=== PATIENT | female | born 1995 | race Caucasian/White ===

== ENCOUNTER 2017-06-06 18:49 | Emergency (ER) | payer SELFPAY ==
[~2017-06-06] VITALS: Ht 175.3 cm; Wt 77.1 kg
[~2017-06-06 18:49] MED LIST: CRUTCH3 USE; Zofran Odt8 MG SL
== END 2017-06-06 19:06 | disposition home or self-care (01) ==
LOC: ER 18:49
DX: J06.9 Acute upper respiratory infection, unspecified (principal)
CPT/HCPCS: 99283; J1100

== ENCOUNTER 2019-01-26 11:54 | Emergency (ER) | payer SELFPAY ==
[~2019-01-26] VITALS: Ht 175.3 cm; Wt 111.1 kg
== END 2019-01-26 13:51 | disposition home or self-care (01) ==
LOC: ER 11:54
DX: I73.9 Peripheral vascular disease, unspecified (principal); L98.9 Disorder of the skin and subcutaneous tissue, unspecified
CPT/HCPCS: 99282

== ENCOUNTER → 2019-11-17 | Outpatient (CLI) | payer OTHER ==
[2019-11-18 07:53] LABS: Candida species (DNA Probe) Negative (NEGATIVE); G. vaginalis (DNA Probe) Negative (NEGATIVE); T. vaginalis (DNA Probe) Negative (NEGATIVE)
== END | disposition home or self-care (01) ==
LOC: LAB SHORT 13:09 → LAB 13:09
PROVIDERS: Obstetrics & Gynecology
DX: N76.0 Acute vaginitis (principal)
CPT/HCPCS: 87480; 87510; 87660

== ENCOUNTER 2020-01-17 18:30 | Emergency (ER) | payer OTHER ==
[~2020-01-17] VITALS: Ht 175.3 cm; Wt 117.9 kg
== END 2020-01-17 21:55 | disposition home or self-care (01) ==
LOC: ER 18:30
DX: N83.201 Unspecified ovarian cyst, right side (principal)
CPT/HCPCS: 76830; 76856; 99284-25

== ENCOUNTER 2020-02-16 10:41 | Day surgery (SDC) | payer OTHER ==
[~2020-02-16] VITALS: Ht 175.3 cm; Wt 119.3 kg
[~2020-02-16 10:41] MED LIST changes: +APRI 28 DAY TA1 EACH PO
[2020-02-16] MEDS ORDERED: IBU800 M1 PO (11:31)
--- NOTE | 2020-02-16 12:21 | NUR ---
02/16/20 1221 Janina Shelton ABDOMINAL AREA PREPPED BY ORS.KNM WITH DURAPREP. ABIMBOLA AREA AND THIGHS PREPPED BY ORS.JHP WITH BETADINE SOLUTION.
--- NOTE | 2020-02-16 14:18 | NUR ---
02/16/20 1418 Marilou Sanchez PT IS EATING CRACKERS. NAUSEA RESOLVED. PAIN LEVEL 6/10. WILL MEDICATE WITH ORAL PAIN MEDICATION ORDERED.
== END 2020-02-16 14:49 | disposition home or self-care (01) ==
LOC: ORSCSDS 10:41
PROVIDERS: Obstetrics & Gynecology
PROC: 0UB54ZZ Excision of Right Fallopian Tube, Percutaneous Endoscopic Approach (ICD-10-PCS; principal; 2020-02-16 12:00)
DX: N83.8 Other noninflammatory disorders of ovary, fallopian tube and broad ligament (principal); R10.2 Pelvic and perineal pain; E66.01 Morbid (severe) obesity due to excess calories; Z68.41 Body mass index [BMI] 40.0-44.9, adult
CPT/HCPCS: 88304; A9270; J0171; J1100; J1885; J2250; J2405; J2704; J2710; J2765; J3010; J7120

== ENCOUNTER → 2021-02-06 | Outpatient (CLI) | payer OTHER ==
[~2021-02-06] MED LIST changes: +IBU800 M1 PO
== END | disposition home or self-care (01) ==
LOC: LAB SHORT 11:30 → LAB 11:30
DX: O09.93 Supervision of high risk pregnancy, unspecified, third trimester (principal)
CPT/HCPCS: 87081; 87150

== ENCOUNTER 2021-03-02 13:02 | Inpatient (IN) | payer OTHER ==
[~2021-03-02] VITALS: Ht 175.3 cm; Wt 128.0 kg
[2021-03-02 14:26] LABS: BASOPHILS ABSOLUTE AUTO 0.03 K/mm3 (0.00-0.23); BASOPHILS PERCENT AUTO 0 % (0-2); EOSINOPHILS ABSOLUTE AUTO 0.04 K/mm3 (0.00-0.68); EOSINOPHILS PERCENT AUTO 1 % (0-6); Hematocrit 39.1 % (33.0-51.0); Hemoglobin 13.2 g/dL (11.5-16.0); IMMATURE GRAN PERCENT AUTO 1 % (0-1); LYMPHOCYTES ABSOLUTE AUTO 1.47 K/mm3 (0.84-5.20); LYMPHOCYTES PERCENT AUTO 17 % (21-46); MONOCYTES ABSOLUTE AUTO 0.71 K/mm3 (0.16-1.47); MONOCYTES PERCENT AUTO 8 % (4-13); Mean Corpuscular HGB 29.4 pg (26.0-34.0); Mean Corpuscular HGB Conc 33.8 g/dL (31.5-36.5); Mean Corpuscular Volume 87 fL (80-100); Mean Platelet Volume 9.7 fL (9.1-12.4); NEUTROPHILS PERCENT AUTO 74 % (41-73); Platelet Count 229 K/mm3 (150-400); RDW Coefficient Variation 13.6 % (11.7-14.2); RDW Standard Deviation 43.1 fL (35.1-46.3); Red Blood Cell Count 4.49 M/mm3 (3.80-5.20); White Blood Cell Count 8.85 K/mm3 (4.00-11.30)
[2021-03-02 15:13] LABS: Influenza A, PCR NEGATIVE (NEGATIVE); Influenza B, PCR NEGATIVE (NEGATIVE); Resp Syncytial Virus, PCR NEGATIVE (NEGATIVE); SARS-Cov-2 (COVID-19) PCR, MMC NEGATIVE (NEGATIVE)
[2021-03-04] MEDS ORDERED: PRENATAL TABLE1 EAC2 PO (08:30)
== END 2021-03-04 10:50 | disposition home or self-care (01) | DRG 807 ==
LOC: OBS 13:02 → BC 13:05 → OBS 13:11 → BC 13:15
PROVIDERS: ADMIT Family Medicine
PROC: 10E0XZZ Delivery of Products of Conception, External Approach (ICD-10-PCS; principal; 2021-03-02)
PROC: 0KQM0ZZ Repair Perineum Muscle, Open Approach (ICD-10-PCS; 2021-03-02)
PROC: 10907ZC Drainage of Amniotic Fluid, Therapeutic from Products of Conception, Via Natural or Artificial Opening (ICD-10-PCS; 2021-03-02)
DX: O99.214 Obesity complicating childbirth (principal); Z37.0 Single live birth; O48.0 Post-term pregnancy; Z20.822 Contact with and (suspected) exposure to COVID-19; O99.62 Diseases of the digestive system complicating childbirth; K21.9 Gastro-esophageal reflux disease without esophagitis; Z3A.40 40 weeks gestation of pregnancy; Z67.40 Type O blood, Rh positive; Z91.013 Allergy to seafood; Z79.899 Other long term (current) drug therapy; O70.1 Second degree perineal laceration during delivery; O43.123 Velamentous insertion of umbilical cord, third trimester
CPT/HCPCS: 0241U; 36415; 51701; 51702; 85025; 86850; 86900; 86901; A9270; J1885; J2210; J2405; J2590; J3010; J7120

== ENCOUNTER 2022-06-13 01:04 | Day surgery (SDC) | payer OTHER ==
[~2022-06-13 01:04] MED LIST changes: +BICARSIM FORTE125 MG PO; +FLUO10 PO; +METO5A PO; +ONDA4ODT MM; +PRENATAL TABLE1 EAC2 PO; +Prilosec Otc20 MG PO
[2022-06-13 07:36] VITALS: BP 124/73
== END 2022-06-13 10:10 | disposition home or self-care (01) ==
LOC: ATC 01:04
DX: O21.9 Vomiting of pregnancy, unspecified (principal)
CPT/HCPCS: 96361; 96374; C1751; J2405; J7120

== ENCOUNTER 2022-06-18 01:22 | Day surgery (SDC) | payer OTHER ==
[2022-06-18 09:16] VITALS: BP 116/73
== END 2022-06-18 09:53 | disposition home or self-care (01) ==
LOC: ATC 01:22
DX: O21.9 Vomiting of pregnancy, unspecified (principal); Z3A.32 32 weeks gestation of pregnancy
CPT/HCPCS: 96360; 96361; J2405; J7120

== ENCOUNTER → 2022-06-19 | Outpatient (CLI) | payer OTHER ==
[~2022-06-19] MED LIST changes: +Metrocream45 GM TOP
[2022-06-19 15:25] LABS: Candida species (DNA Probe) Negative (NEGATIVE); G. vaginalis (DNA Probe) Positive (NEGATIVE); T. vaginalis (DNA Probe) Negative (NEGATIVE)
== END | disposition home or self-care (01) ==
LOC: LAB SHORT 10:01 → LAB 10:01
PROVIDERS: Obstetrics & Gynecology
DX: N76.0 Acute vaginitis (principal)
CPT/HCPCS: 87480; 87510; 87660

== ENCOUNTER 2022-06-20 00:31 | Day surgery (SDC) | payer OTHER ==
[~2022-06-20 00:31] MED LIST changes: -Metrocream45 GM TOP
[2022-06-20 07:49] VITALS: BP 107/71
[2022-06-20] MEDS ORDERED: Metrocream45 GM TOP (08:39)
== END 2022-06-20 09:48 | disposition home or self-care (01) ==
LOC: ATC 00:31
DX: O21.9 Vomiting of pregnancy, unspecified (principal); Z3A.00 Weeks of gestation of pregnancy not specified
CPT/HCPCS: 96361; 96374; J2405; J7120

== ENCOUNTER 2022-06-23 00:28 | Day surgery (SDC) | payer OTHER ==
[~2022-06-23 00:28] MED LIST changes: +Metrocream45 GM TOP
[2022-06-23 07:40] VITALS: BP 119/76
== END 2022-06-23 10:10 | disposition home or self-care (01) ==
LOC: ATC 00:28
DX: O21.9 Vomiting of pregnancy, unspecified (principal); Z3A.00 Weeks of gestation of pregnancy not specified; Z79.899 Other long term (current) drug therapy
CPT/HCPCS: 96361; 96374; J2405; J7120

== ENCOUNTER 2022-06-25 02:28 | Day surgery (SDC) | payer OTHER ==
[2022-06-25 09:05] VITALS: BP 122/73
== END 2022-06-25 09:02 | disposition home or self-care (01) ==
LOC: ATC 02:28
DX: O21.9 Vomiting of pregnancy, unspecified (principal); Z3A.00 Weeks of gestation of pregnancy not specified
CPT/HCPCS: 96361; 96374; J2405; J7120

== ENCOUNTER 2022-06-30 00:46 | Day surgery (SDC) | payer OTHER ==
[2022-06-30 10:24] VITALS: BP 113/71
== END 2022-06-30 11:30 | disposition home or self-care (01) ==
LOC: ATC 00:46
DX: O21.9 Vomiting of pregnancy, unspecified (principal); Z3A.00 Weeks of gestation of pregnancy not specified
CPT/HCPCS: 96361; 96374; 96375; J2405; J7120

== ENCOUNTER → 2022-07-03 | Outpatient (CLI) | payer OTHER ==
[2022-07-03 12:32] LABS: Source, Urine Clean Catch
[2022-07-03 13:53] LABS: Appearance, Urine Clear (Clear); Bilirubin, Urine Neg (Neg); Blood, Urine 1+ (Neg); Color, Urine Yellow (P-Yellow); Glucose Qualitative, Urine Neg (Neg); Ketones, Urine 2+ (Neg); Leukocyte Esterase, Urine 1+ (Neg); Nitrite, Urine Neg (Neg); Protein, Urine 1+ (Neg); Urobilinogen, Urine NORM (Normal); pH, Urine 6.5 (5.0-8.0)
[2022-07-03 14:01] LABS: Bacteria Many /hpf; Squamous Epithelial Cells Mod /hpf (Few)
== END ==
LOC: LAB SHORT 11:20 → LAB 11:20
PROVIDERS: Family Medicine
DX: R82.79 Other abnormal findings on microbiological examination of urine (principal)
CPT/HCPCS: 81001; 87086

== ENCOUNTER 2022-07-04 01:46 | Day surgery (SDC) | payer OTHER ==
[2022-07-04 07:43] VITALS: BP 117/75
== END 2022-07-04 10:07 | disposition home or self-care (01) ==
LOC: ATC 01:46
DX: O21.9 Vomiting of pregnancy, unspecified (principal); Z3A.00 Weeks of gestation of pregnancy not specified; F41.8 Other specified anxiety disorders; Z79.899 Other long term (current) drug therapy
CPT/HCPCS: 96361; 96374; J2405; J7120

== ENCOUNTER 2022-07-07 02:34 | Day surgery (SDC) | payer OTHER ==
[2022-07-07 07:49] VITALS: BP 122/69
== END 2022-07-07 09:56 | disposition home or self-care (01) ==
LOC: ATC 02:34
DX: O21.9 Vomiting of pregnancy, unspecified (principal); Z3A.00 Weeks of gestation of pregnancy not specified; F41.8 Other specified anxiety disorders; Z79.899 Other long term (current) drug therapy
CPT/HCPCS: 96361; 96374; J2405; J7120

== ENCOUNTER → 2022-07-10 | Outpatient (CLI) | payer OTHER | END | disposition home or self-care (01) | LOC: LAB SHORT 12:00 → LAB 12:00 | DX: O09.893 Supervision of other high risk pregnancies, third trimester (principal) | CPT/HCPCS: 87081; 87150 ==

== ENCOUNTER 2022-07-11 00:33 | Day surgery (SDC) | payer OTHER ==
[2022-07-11 09:47] VITALS: BP 111/77
== END 2022-07-11 10:50 | disposition home or self-care (01) ==
LOC: ATC 00:33
DX: O21.9 Vomiting of pregnancy, unspecified (principal); Z3A.00 Weeks of gestation of pregnancy not specified; O99.210 Obesity complicating pregnancy, unspecified trimester; E66.9 Obesity, unspecified; O99.340 Other mental disorders complicating pregnancy, unspecified trimester; F41.8 Other specified anxiety disorders
CPT/HCPCS: 96361; 96374; J2405; J7120

== ENCOUNTER → 2022-07-17 | Outpatient (CLI) | payer OTHER ==
[~2022-07-17] MED LIST changes: +IBUP800 PO; +Prednisone10 MG PO
[2022-07-17 12:24] LABS: BASOPHILS ABSOLUTE AUTO 0.02 K/mm3 (0.00-0.23); BASOPHILS PERCENT AUTO 0 % (0-2); EOSINOPHILS ABSOLUTE AUTO 0.03 K/mm3 (0.00-0.68); EOSINOPHILS PERCENT AUTO 0 % (0-6); Hematocrit 37.9 % (33.0-51.0); Hemoglobin 12.6 g/dL (11.5-16.0); IMMATURE GRAN ABSOLUTE AUTO 0.07 K/mm3 (0.00-0.10); IMMATURE GRAN PERCENT AUTO 1 % (0-1); LYMPHOCYTES ABSOLUTE AUTO 1.49 K/mm3 (0.84-5.20); LYMPHOCYTES PERCENT AUTO 19 % (21-46); MONOCYTES ABSOLUTE AUTO 0.63 K/mm3 (0.16-1.47); MONOCYTES PERCENT AUTO 8 % (4-13); Mean Corpuscular HGB 28.5 pg (26.0-34.0); Mean Corpuscular HGB Conc 33.2 g/dL (31.5-36.5); Mean Corpuscular Volume 86 fL (80-100); Mean Platelet Volume 10.9 fL (9.1-12.4); NEUTROPHILS ABSOLUTE AUTO 5.46 K/mm3 (1.96-9.15); NEUTROPHILS PERCENT AUTO 71 % (41-73); Platelet Count 258 K/mm3 (150-400); RDW Coefficient Variation 13.1 % (11.7-14.2); RDW Standard Deviation 40.9 fL (35.1-46.3); Red Blood Cell Count 4.42 M/mm3 (3.80-5.20)
[2022-07-17 12:46] LABS: Albumin, Blood 2.4 g/dL (3.4-5.0); Albumin/Globulin Ratio 0.6 (0.8-1.8); Bilirubin, Total 0.3 mg/dL (0.1-1.0); Bun/Creatinine Ratio 13.7 (12.0-20.0); Calcium, Blood 8.5 mg/dL (8.5-10.1); Creatinine, Blood 0.59 mg/dL (0.40-1.00); Globulin, Blood 3.8 g/dL (2.2-4.0); Potassium, Blood 3.9 mmol/L (3.5-5.5); Total Protein, Blood 6.2 g/dL (6.4-8.2)
[2022-07-17 12:49] LABS: Creatinine, Urine Random >400.00 mg/dL (27.00-270.00); Microalb/Creat Ratio UR, Rand Unable to Calculate mg/g (0.000-30.000)
== END | disposition home or self-care (01) ==
LOC: LAB 09:45 → LAB SHORT 09:45
PROVIDERS: Family Medicine
DX: O09.893 Supervision of other high risk pregnancies, third trimester (principal)
CPT/HCPCS: 80053; 82043; 82570; 85025

== ENCOUNTER 2022-07-18 02:58 | Day surgery (SDC) | payer OTHER ==
[~2022-07-18 02:58] MED LIST changes: -IBUP800 PO; -Prednisone10 MG PO
[2022-07-18 07:41] VITALS: BP 129/80
[2022-07-18] MEDS ORDERED: Prednisone10 MG PO (07:45)
== END 2022-07-18 09:54 | disposition home or self-care (01) ==
LOC: ATC 02:58
DX: O21.9 Vomiting of pregnancy, unspecified (principal); O99.213 Obesity complicating pregnancy, third trimester; E66.9 Obesity, unspecified; Z3A.37 37 weeks gestation of pregnancy
CPT/HCPCS: J2405; J7120

== ENCOUNTER 2022-07-20 11:16 | Inpatient (IN) | payer OTHER ==
[~2022-07-20] VITALS: Ht 175.3 cm; Wt 125.0 kg
[2022-07-20] VITALS (10 sets, daily range): BP systolic 118–136; BP diastolic 59–87
[~2022-07-20 11:16] MED LIST changes: +Prednisone10 MG PO
[2022-07-20 16:35] LABS: BASOPHILS ABSOLUTE AUTO 0.02 K/mm3 (0.00-0.23); BASOPHILS PERCENT AUTO 0 % (0-2); EOSINOPHILS ABSOLUTE AUTO 0.01 K/mm3 (0.00-0.68); EOSINOPHILS PERCENT AUTO 0 % (0-6); Hematocrit 35.2 % (33.0-51.0); Hemoglobin 11.5 g/dL (11.5-16.0); IMMATURE GRAN ABSOLUTE AUTO 0.05 K/mm3 (0.00-0.10); IMMATURE GRAN PERCENT AUTO 1 % (0-1); LYMPHOCYTES ABSOLUTE AUTO 1.64 K/mm3 (0.84-5.20); LYMPHOCYTES PERCENT AUTO 21 % (21-46); MONOCYTES ABSOLUTE AUTO 0.64 K/mm3 (0.16-1.47); MONOCYTES PERCENT AUTO 8 % (4-13); Mean Corpuscular HGB Conc 32.7 g/dL (31.5-36.5); Mean Corpuscular Volume 86 fL (80-100); Mean Platelet Volume 10.4 fL (9.1-12.4); NEUTROPHILS ABSOLUTE AUTO 5.48 K/mm3 (1.96-9.15); NEUTROPHILS PERCENT AUTO 70 % (41-73); Platelet Count 242 K/mm3 (150-400); RDW Coefficient Variation 13.2 % (11.7-14.2); RDW Standard Deviation 41.2 fL (35.1-46.3); White Blood Cell Count 7.84 K/mm3 (4.00-11.30)
[2022-07-20 16:51] LABS: Albumin, Blood 2.4 g/dL (3.4-5.0); Albumin/Globulin Ratio 0.6 (0.8-1.8); Bilirubin, Total 0.3 mg/dL (0.1-1.0); Bun/Creatinine Ratio 10.6 (12.0-20.0); Calcium, Blood 8.3 mg/dL (8.5-10.1); Creatinine, Blood 0.57 mg/dL (0.40-1.00); Globulin, Blood 3.7 g/dL (2.2-4.0); Magnesium, Blood 1.8 mg/dL (1.6-2.4); Phosphorus, Blood 3.2 mg/dL (2.5-4.9); Potassium, Blood 3.3 mmol/L (3.5-5.5); Total Protein, Blood 6.1 g/dL (6.4-8.2)
[2022-07-21] VITALS (13 sets, daily range): BP systolic 115–139; BP diastolic 61–91
[2022-07-21 00:12] LABS: Source, Urine Clean Catch
[2022-07-21 00:18] LABS: Bilirubin, Urine Neg (Neg); Blood, Urine Neg (Neg); Glucose Qualitative, Urine Neg (Neg); Ketones, Urine 1+ (Neg); Leukocyte Esterase, Urine Neg (Neg); Nitrite, Urine Neg (Neg); Protein, Urine Neg (Neg); Urobilinogen, Urine NORM (Normal)
[2022-07-21 00:20] LABS: Appearance, Urine Clear (Clear); Color, Urine Yellow (P-Yellow)
[2022-07-22 03:54] VITALS: BP 134/74
[2022-07-22 07:55] VITALS: BP 116/75
[2022-07-22] MEDS ORDERED: PRENATAL TABLE1 EAC2 PO (09:10)
[2022-07-22] MEDS ORDERED: IBUP800 PO (09:10)
== END 2022-07-22 10:15 | disposition home or self-care (01) | DRG 807 ==
LOC: OBS 11:16 → BC 11:16 → OBS 12:36 → BC 12:38
PROVIDERS: ADMIT Obstetrics & Gynecology
PROC: 0HQ9XZZ Repair Perineum Skin, External Approach (ICD-10-PCS; principal; 2022-07-22)
PROC: 10E0XZZ Delivery of Products of Conception, External Approach (ICD-10-PCS; 2022-07-22)
PROC: 3E033VJ Introduction of Other Hormone into Peripheral Vein, Percutaneous Approach (ICD-10-PCS; 2022-07-22)
PROC: 0UQMXZZ Repair Vulva, External Approach (ICD-10-PCS; 2022-07-22)
PROC: 3E0P7VZ Introduction of Hormone into Female Reproductive, Via Natural or Artificial Opening (ICD-10-PCS; 2022-07-22)
DX: O21.0 Mild hyperemesis gravidarum (principal); Z37.0 Single live birth; O70.0 First degree perineal laceration during delivery; O99.344 Other mental disorders complicating childbirth; F41.8 Other specified anxiety disorders; O99.62 Diseases of the digestive system complicating childbirth; O43.123 Velamentous insertion of umbilical cord, third trimester; K21.9 Gastro-esophageal reflux disease without esophagitis; O99.214 Obesity complicating childbirth; Z3A.37 37 weeks gestation of pregnancy; Z67.40 Type O blood, Rh positive; Z91.013 Allergy to seafood; Z98.890 Other specified postprocedural states; Z79.899 Other long term (current) drug therapy
CPT/HCPCS: 36415; 59025; 80053; 81003; 82947; 83735; 84100; 85025; 86850; 86900; 86901; A9270; C1751; J0780; J1885; J2405; J2590; J3411; J7120

== ENCOUNTER → 2022-09-29 | Outpatient (CLI) | payer OTHER ==
[~2022-09-29] MED LIST changes: +IBUP800 PO
== END | disposition home or self-care (01) ==
LOC: LAB SHORT 08:02
DX: M79.674 Pain in right toe(s) (principal)
CPT/HCPCS: 84550

== ENCOUNTER 2023-02-25 04:10 | Emergency (ER) | payer OTHER ==
[~2023-02-25] VITALS: Ht 175.3 cm; Wt 121.1 kg
[2023-02-25 06:48] LABS: Source, Urine Clean Catch
[2023-02-25 06:53] LABS: Bilirubin, Urine Neg (Neg); Blood, Urine Neg (Neg); Glucose Qualitative, Urine Neg (Neg); Ketones, Urine Neg (Neg); Leukocyte Esterase, Urine 1+ (Neg); Nitrite, Urine Neg (Neg); Protein, Urine Neg (Neg); Specific Gravity, Urine 1.025 (1.003-1.022); Urobilinogen, Urine NORM (Normal)
[2023-02-25 07:21] LABS: Appearance, Urine Hazy (Clear); Bacteria Rare /hpf; Color, Urine Yellow (P-Yellow); Red Blood Cells, Urine Not Seen /hpf (0-2); Squamous Epithelial Cells Rare /hpf (Few); White Blood Cells, Urine 0-2 /hpf (0-5)
[2023-02-25 07:35] LABS: BASOPHILS ABSOLUTE AUTO 0.05 K/mm3 (0.00-0.23); BASOPHILS PERCENT AUTO 1 % (0-2); EOSINOPHILS PERCENT AUTO 1 % (0-6); Hematocrit 37.5 % (33.0-51.0); Hemoglobin 11.7 g/dL (11.5-16.0); IMMATURE GRAN ABSOLUTE AUTO 0.07 K/mm3 (0.00-0.10); IMMATURE GRAN PERCENT AUTO 1 % (0-1); LYMPHOCYTES ABSOLUTE AUTO 1.83 K/mm3 (0.84-5.20); LYMPHOCYTES PERCENT AUTO 24 % (21-46); MONOCYTES ABSOLUTE AUTO 0.75 K/mm3 (0.16-1.47); MONOCYTES PERCENT AUTO 10 % (4-13); Mean Corpuscular HGB 21.9 pg (26.0-34.0); Mean Corpuscular HGB Conc 31.2 g/dL (31.5-36.5); Mean Corpuscular Volume 70 fL (80-100); Mean Platelet Volume 9.5 fL (9.1-12.4); NEUTROPHILS ABSOLUTE AUTO 4.98 K/mm3 (1.96-9.15); NEUTROPHILS PERCENT AUTO 64 % (41-73); Platelet Count 300 K/mm3 (150-400); RDW Coefficient Variation 17.2 % (11.7-14.2); RDW Standard Deviation 42.4 fL (35.1-46.3); Red Blood Cell Count 5.35 M/mm3 (3.80-5.20); White Blood Cell Count 7.78 K/mm3 (4.00-11.30)
[2023-02-25 07:55] LABS: Albumin, Blood 3.3 g/dL (3.4-5.0); Bilirubin, Total 0.3 mg/dL (0.1-1.0); Bun/Creatinine Ratio 23.2 (12.0-20.0); Calcium, Blood 8.3 mg/dL (8.5-10.1); Creatinine, Blood 0.52 mg/dL (0.40-1.00); Globulin, Blood 3.4 g/dL (2.2-4.0); Potassium, Blood 3.9 mmol/L (3.5-5.5); Total Protein, Blood 6.7 g/dL (6.4-8.2)
[2023-02-25] MEDS ORDERED: CEPH500 PO (10:23)
[2023-02-25 10:49] VITALS: BP 114/70
== END 2023-02-25 10:50 | disposition home or self-care (01) ==
LOC: ER 04:10
PROVIDERS: Emergency Medicine
DX: N39.0 Urinary tract infection, site not specified (principal); N20.0 Calculus of kidney; K21.9 Gastro-esophageal reflux disease without esophagitis; F32.A Depression, unspecified; Z91.013 Allergy to seafood; Z79.899 Other long term (current) drug therapy
CPT/HCPCS: 74176; 80053; 81001; 81025; 83690; 85025; 87086; 96374; 96375; 99284-25; J1885; J2765

== ENCOUNTER 2024-11-21 11:15 | Day surgery (SDC) | payer OTHER ==
[~2024-11-21] VITALS: Ht 175.3 cm; Wt 124.6 kg
[2024-11-21] VITALS (24 sets, daily range): BP systolic 114–145; BP diastolic 64–86
[~2024-11-21 11:15] MED LIST changes: +CEPH500 PO; +CeFAZolin Sodium 3,000 MG in NS 100 ML IV SCH; +FERROUS GLUCON324 M2 PO; +Norco 5-325 Ta1 EACH PO; +Prozac20 MG PO
--- NOTE | 2024-11-21 12:24 | NUR ---
Ambulatory in Day SurgeryPre-Op teaching done. Pt verbalizes understanding. History, Chart, Medications and Allergies reviewed before start of procedure.Patient confirms NPO status and agrees with scheduled surgery. Patient reports completing Chlorhexadine shower X2 prior to admission to hospital.
[2024-11-21] MEDS ORDERED: Bupivacaine 0.25% Epi 1:200000 30 ML Vial ONE (13:22)
[2024-11-21] MEDS ORDERED: FentaNYL Citrate 50 MCG/ML 2 ML Injection ONE ×3 (13:33→16:47)
[2024-11-21] MEDS ORDERED: Rocuronium Bromide 10 MG/ML 5ML Injection IV ONE ×2 (13:35→14:11)
[2024-11-21] MEDS ORDERED: FentaNYL Citrate 50 MCG/ML 2 ML Injection IV PRN (13:40)
[2024-11-21] MEDS ORDERED: Dexamethasone Sod Phos 10 MG/ML 1ML VIAL ONE (13:46)
[2024-11-21] MEDS ORDERED: Sugammadex Sodium 200 MG/2ML SDV (100 MG/ML) ONE (15:25)
[2024-11-21] MEDS ORDERED: HYDROmorphone HCl/Pf 1MG SYR ONE (15:25)
[2024-11-21] MEDS ORDERED: Ondansetron HCl 2 MG / ML 2ML Vial ONE ×2 (15:34→16:16)
[2024-11-21] MEDS ORDERED: HYDROmorphone HCl/Pf 1MG SYR IV PRN (15:55)
[2024-11-21] MEDS ORDERED: HYDROcodone 5-APAP 325 TAB PO PRN (15:55)
[2024-11-21] MEDS ORDERED: Naloxone HCl 0.4MG / ML 1ML Vial IV PRN (16:00)
[2024-11-21] MEDS ORDERED: Metoclopramide HCl 5MG / ML 2ML Vial IV PRN (16:00)
[2024-11-21] MEDS ORDERED: Ondansetron HCl 2 MG / ML 2ML Vial IV PRN (16:00)
[2024-11-21] MEDS ORDERED: FLU VACC TS2025-26(6MOS UP)/PF 45 MCG/0.5 ML SYRINGE IM SCH (16:05)
[2024-11-21] MEDS ORDERED: Ketorolac Tromethamine 30mg Vial IV PRN (16:10)
[2024-11-21] MEDS ORDERED: Metoclopramide HCl 5MG / ML 2ML Vial ONE (16:14)
[2024-11-21] MEDS ORDERED: Prochlorperazine Edisylate 10 mg Vial ONE (17:10)
--- NOTE | 2024-11-21 17:56 | NUR ---
ARRIVAL TO UNIT PT IS A/OX4. 4 LAP SITES C/D/I. PT IS EXPERIENCING N/V. MEDICATED PER EMAR. PT FAMILY IN ROOM. NO VAGINAL BLEEDING NOTED AT THIS TIME.
--- NOTE | 2024-11-21 18:38 | NUR ---
SHIFT SUMMARY S/P LAP HYSTERECTOMY. PT IS POD 0, A/OX4. PAIN MANAGED PER EMAR. NAUSEA PREVALENT DESPITE MEDICATIONS PER EMAR. PT IS YET TO TOLERATE PO INTAKE. 4 LAP SITES C/D/I. NO ACUTE CHANGES SINCE ARRIVAL TO UNIT.
[2024-11-21] MEDS ORDERED: LORazepam 2 MG/ML 1ML Injection IV PRN (19:10)
--- NOTE | 2024-11-21 20:11 | NUR ---
ASSUMED CARE ASSUMED CARE OF PATIENT. PT A/OX4 WITH VSS. UNABLE TO TOLERATE MORE THAN SIPS OF WATER AT THIS POINT POST OP. SBA WITH AMBULATION TO BATHROOM. DENIES PASSING FLATUS OR VOID. IV PATENT. FRIENDS ATTENTIVE AT BEDSIDE. DENIES PAIN, SOB, CHEST PAIN OR N/T. IS ABLE TO MAKE NEEDS KNOWN. REF SCDS. HAS CALL LIGHT IN REACH.
--- NOTE | 2024-11-22 03:23 | NUR ---
SHIFT SUMMARY POD 1 S/P HYSTERECTOMY. ABD INCISIONS CDI, NO DRAINAGE NOTED. IS VOIDING. TAWNY CLEAR LIQUIDS. PAIN MANAGED PER EMAR. IS DRINKING. AMB IND TO BATHROOM. IV PATENT AND INFUSING. PLAN FOR DISCHARGE HOME TODAY. PT CURRENTLY RESTING IN BED WITH CALL LIGHT IN REACH AND RESP EVEN. WILL GIVE REPORT TO ONCOMING RN.
[2024-11-22 03:44] VITALS: BP 113/66
[2024-11-22 07:39] VITALS: BP 119/70
[2024-11-22] MEDS ORDERED: ACET500 PO (07:56)
[2024-11-22] MEDS ORDERED: SIME80CH PO (07:56)
--- NOTE | 2024-11-22 08:17 | NUR ---
DISCHARGE NOTE PT IS A/OX4, AMBULATING IND IN ROOM. PT IS TOLERATING PO INTAKE, DENIES N/V. VOIDING WELL. DENIES PAIN. PT VERBALIZES UNDERSTANDING OF DC EDUCATION. PERSONAL BELONGINGS W/ PATIENT. 4 LAP SITES C/D/I. IV REMOVED. ESCORED OUT VIA WC.
== END 2024-11-22 08:19 | disposition home or self-care (01) ==
LOC: ORSCMMR 11:15 → ORD 13:30 → ORSCMMR 13:30 → SURS 17:05 → ORSCMMR 22:00
PROVIDERS: Obstetrics & Gynecology
PROC: 0UT9FZZ Resection of Uterus, Via Natural or Artificial Opening With Percutaneous Endoscopic Assistance (ICD-10-PCS; principal; 2024-11-21 13:00)
PROC: 0UT7FZZ Resection of Bilateral Fallopian Tubes, Via Natural or Artificial Opening With Percutaneous Endoscopic Assistance (ICD-10-PCS; principal; 2024-11-21 13:00)
DX: N92.1 Excessive and frequent menstruation with irregular cycle (principal); N72 Inflammatory disease of cervix uteri; N83.8 Other noninflammatory disorders of ovary, fallopian tube and broad ligament; F41.9 Anxiety disorder, unspecified; F32.A Depression, unspecified; E66.01 Morbid (severe) obesity due to excess calories; Z68.41 Body mass index [BMI] 40.0-44.9, adult; D50.9 Iron deficiency anemia, unspecified; Z79.899 Other long term (current) drug therapy; Z80.49 Family history of malignant neoplasm of other genital organs
CPT/HCPCS: 88307; A9270; J0690; J0780; J1100; J1171; J1885; J2405; J2704; J2765; J3010; J7120

== ENCOUNTER 2024-11-29 11:14 | Emergency (ER) | payer OTHER ==
[~2024-11-29] VITALS: Ht 177.8 cm; Wt 130.2 kg
[~2024-11-29 11:14] MED LIST changes: +ACET500 PO; -CeFAZolin Sodium 3,000 MG in NS 100 ML IV SCH; +SIME80CH PO
[2024-11-29 11:43] VITALS: BP 130/87
[2024-11-29 12:33] LABS: BASOPHILS ABSOLUTE AUTO 0.04 K/mm3 (0.00-0.23); BASOPHILS PERCENT AUTO 1 % (0-2); EOSINOPHILS ABSOLUTE AUTO 0.13 K/mm3 (0.00-0.68); EOSINOPHILS PERCENT AUTO 2 % (0-6); Hematocrit 40.2 % (33.0-51.0); Hemoglobin 13.5 g/dL (11.5-16.0); IMMATURE GRAN ABSOLUTE AUTO 0.09 K/mm3 (0.00-0.10); IMMATURE GRAN PERCENT AUTO 1 % (0-1); LYMPHOCYTES ABSOLUTE AUTO 1.89 K/mm3 (0.84-5.20); LYMPHOCYTES PERCENT AUTO 23 % (21-46); MONOCYTES ABSOLUTE AUTO 0.71 K/mm3 (0.16-1.47); MONOCYTES PERCENT AUTO 9 % (4-13); Mean Corpuscular HGB Conc 33.6 g/dL (31.5-36.5); Mean Corpuscular Volume 78 fL (80-100); NEUTROPHILS ABSOLUTE AUTO 5.29 K/mm3 (1.96-9.15); NEUTROPHILS PERCENT AUTO 65 % (41-73); NRBC ABSOLUTE 0.00 K/mm3 (0.00-0.02); NRBC Auto 0.0 /100 WBC (0.0-0.2); Platelet Count 271 K/mm3 (150-400); RDW Coefficient Variation 15.8 % (11.7-14.2); RDW Standard Deviation 45.2 fL (35.1-46.3)
[2024-11-29 12:51] LABS: Alanine Aminotransfer (ALT/SGP 39.0 U/L (12-78); Albumin, Blood 3.4 g/dL (3.4-5.0); Albumin/Globulin Ratio 0.9 (0.8-1.8); Anion Gap 8.0 mmol/L (3-11); Aspartate Aminotrans (AST/SGOT 21.0 U/L (12-37); Bilirubin, Total 0.2 mg/dL (0.1-1.0); Blood Urea Nitrogen 11.0 mg/dL (8-24); CO2, Blood 24.0 mmol/L (21-32); Calcium, Blood 8.9 mg/dL (8.5-10.1); Chloride, Blood 109.0 mmol/L (98-108); Creatinine, Blood 0.55 mg/dL (0.40-1.00); Globulin, Blood 3.6 g/dL (2.2-4.0); Glucose, Blood 111.0 mg/dL (70-99); Potassium, Blood 3.8 mmol/L (3.5-5.5); Sodium, Blood 137.0 mmol/L (136-145); Total Protein, Blood 7.0 g/dL (6.4-8.2)
[2024-11-29] MEDS ORDERED: Ketorolac Tromethamine 15mg Vial IV ONE (14:40)
[2024-11-29] MEDS ORDERED: CYCL10 PO (15:46)
== END 2024-11-29 16:04 | disposition home or self-care (01) ==
LOC: ER 11:14
PROVIDERS: Physician Assistant
DX: S13.4XXA Sprain of ligaments of cervical spine, initial encounter (principal); R10.30 Lower abdominal pain, unspecified; M54.50 Low back pain, unspecified; V43.52XA Car driver injured in collision with other type car in traffic accident, initial encounter
CPT/HCPCS: 72040; 73000; 74177; 80053; 83690; 85025; 96374-59; 99284-25; J1885; Q9967